=== PATIENT | male | born 1965 | race Caucasian/White ===

== ENCOUNTER 2018-01-03 15:57 | Inpatient (IN) | payer MEDICAID ==
[~2018-01-03] VITALS: Ht 172.7 cm; Wt 91.2 kg
--- NOTE | 2018-01-03 16:15 | NUR ---
DIARRHEA x 3 DAYS. OLIGURIA X 2 DAYS. NAD NOTED, VSS, RESP EVEN AND UNLABORED, PT WAS PUT ON A MONITOR, WAITING FOR MD MCNEILL.
[2018-01-03] MEDS ORDERED: ONDANSETRON HCL/PF 4 MG/2 ML VIAL ONE (16:44)
[2018-01-03 17:00] LABS: CALCIUM, SERUM 9.7 mg/dL (8.5-10.1); CREATININE 1.8 mg/dL (0.6-1.3); POTASSIUM 4.3 mmol/L (3.5-5.1)
[2018-01-03] MEDS ORDERED: IV NS 0.9% 1,000 ML BAG IV ONE (17:00)
[2018-01-03] MEDS ORDERED: ONDANSETRON HCL/PF 4 MG/2 ML VIAL IVP ONE (17:00)
[2018-01-03 17:04] LABS: INR 0.9 (0.85-1.15)
[2018-01-03 17:06] LABS: ALBUMIN 4.4 g/dL (3.4-5.0); BILIRUBIN,DIRECT 0.2 mg/dL (0.0-0.2); BILIRUBIN,TOTAL 1.2 mg/dL (0.2-1.0); TOTAL PROTEIN, SERUM 9.3 g/dL (6.4-8.2)
[2018-01-03 17:08] LABS: BASOPHILS # (AUTO) 0.1 /CMM (0.0-0.2); BASOPHILS % (AUTO) 0.8 % (0.0-2.0); EOSINOPHILS # (AUTO) 0.1 /CMM (0.0-0.7); EOSINOPHILS % (AUTO) 0.7 % (0.0-6.0); HEMATOCRIT 57 % (39-51); LYMPHOCYTES # (AUTO) 1.4 /CMM (0.8-4.8); LYMPHOCYTES % (AUTO) 10.8 % (20.0-44.0); MEAN CORPUSCULAR HEMOGLOBIN 32 PG (26.0-33.0); MEAN CORPUSCULAR HGB CONC 36 g/dl (31.0-36.0); MEAN CORPUSCULAR VOLUME 90 fL (80-96); MONOCYTES # (AUTO) 0.7 /CMM (0.1-1.30); MONOCYTES % (AUTO) 5.3 % (2.0-12.0); NEUTROPHILS # (AUTO) 10.4 /CMM (1.8-8.9); NEUTROPHILS % (AUTO) 82.4 % (43.0-81.0); PLATELET COUNT (AUTO) 437 /CMM (150-450); RDW COEFFICIENT OF VARIATION 12.3 (11.5-15.0); WHITE BLOOD COUNT (AUTO) 12.7 K/uL (4.3-11.0)
[2018-01-03 17:11] LABS: HEMOGLOBIN 20.1 g/dL (13.5-17.5)
--- NOTE | 2018-01-03 17:25 | NUR ---
DR MARIA AT BS.
--- NOTE | 2018-01-03 17:25 | NUR ---
PT IS STILL UNABLE TO PROVIDE URINE AND STOOL SAMPLE AT THIS MOMENT WILL TRY AFTER IVF HAS BEEN INFUSED.
[2018-01-03] MEDS ORDERED: IV NS 0.9% 1,000 ML IV PRN ×2 (17:46→20:30)
[2018-01-03] MEDS ORDERED: HYDROCODONE/APAP 5/325MG 1 EACH TABLET PO PRN ×2 (18:00→20:30)
[2018-01-03] MEDS ORDERED: MAGNESIUM HYDROXIDE 30 ML UDC PO PRN ×2 (18:00→20:30)
[2018-01-03] MEDS ORDERED: MAG HYDROX/AL HYDROX/SIMETH 30 ML UDC PO PRN ×2 (18:00→20:30)
[2018-01-03] MEDS ORDERED: ZOLPIDEM TARTRATE 5 MG TABLET PO PRN ×2 (18:00→20:30)
[2018-01-03] MEDS ORDERED: ACETAMINOPHEN 325 MG TABLET PO PRN ×2 (18:00→20:30)
[2018-01-03] MEDS ORDERED: Z GUARD REMEDY 2 OZ OINT TP PRN ×2 (18:00→20:30)
[2018-01-03] MEDS ORDERED: ONDANSETRON HCL/PF 4 MG/2 ML VIAL IVP PRN ×2 (18:00→20:30)
[2018-01-03 18:36] LABS: APPEARANCE,URINE Slightly Cloudy (CLEAR); BILIRUBIN,URINE SMALL (NEGATIVE); BLOOD, URINE Negative Ery/uL (NEGATIVE); COLOR,URINE Yellow (YELLOW); KETONES,URINE Negative (NEGATIVE); LEUKOCYTE ESTERASE ,URINE Negative (NEGATIVE); NITRITE, URINE Negative (NEGATIVE); PH,URINE 5.5 (5.0-8.0); PROTEIN,URINE Trace mg/dl (NEGATIVE); UGLUCOSE Negative (NEGATIVE); UROBILINOGEN,URINE 0.2 EU/dL (0.2)
[2018-01-03 19:06] LABS: RBC,URINE 0-2 /HPF (0-2)
[2018-01-03 19:07] LABS: BACTERIA,URINE Few /HPF (None Seen); FINE GRANULAR CASTS,URINE Few /LPF (None Seen); HYALINE CASTS, URINE Many /LPF (None Seen); SQUAMOUS EPITHELIAL CELL,UR Moderate /HPF (None Seen); WBC,URINE 0-2 /HPF (0-3)
--- NOTE | 2018-01-03 20:12 | NUR ---
REPORT GIVEN TO ORLY
[2018-01-03 20:28] LABS: LYMPHOCYTES % (MANUAL) 12 % (16-48); MONOCYTES % (MANUAL) 6 % (0-11.0); NEUTROPHILS % (MANUAL) 82 (42-76)
--- NOTE | 2018-01-03 20:30 | NUR ---
MS ADMITTING NOTES PT RECEIVED FROM [facility] AT 2020 VIA W/C A/O X 4, PT NOW RESTING COMFORTABLY IN BED. NO S/S OF DISTRESS NOTED. STABLE CONDITION, SIDE RAILS UP X2, CALL LIGHT WITHIN REACH. WILL CONTINUE PLAN OF CARE. HEAD TO TOE ASSESSMENT SKIN IS INTACT. TOLERATING ROOM AIR 98% NO DIARRHEA, NO C/O OF PAIN
--- NOTE | 2018-01-03 20:53 | NUR ---
MS RN NOTES PAGED DR.OLEG NICHOLSON. PHARMACY BENEFIT MANAGER HOSPITLAIST SPOKE TO HIM PT C/O OF HUNGRY, PER DR CELESTIN ORDER DIET REGULAR NOTED AND CARRIED OUT READ BACK AND VERIFIED
[2018-01-03 21:16] VITALS: BP 132/83
--- NOTE | 2018-01-04 06:20 | NUR ---
MS RN CLOSING NOTES PT COMFORTABLY ASLEEP AND EASILY AWAKEN, TOLERATING ROOM AIR 02 SAT 98% IN STABLE CONDITION. RESPIRATION EVEN AND UNLABORED. KEPT CLEAN AND DRY AND COMFORTABLE, ALL NURSING CARE RENDERED. NEEDS ATTENDED AND ANTICIPATED, FREQUENT VISUAL CHECK DONE FOR SAFETY EVERY 2 HOURS. ON LOW BED AT ALL TIMES TO ENSURE SAFETY. NO C/O PAIN. NO DIARRHEA, SAFE HAZARD FREE ENVIRONMENT PROVIDED. CALL LIGHT WITHIN EASY TO REACH. WILL ENDORSE NEXT SHIFT CONTINUITY OF CARE
--- NOTE | 2018-01-04 07:30 | NUR ---
MS RN OPENING NOTE RECEIVED PATIENT IN BED. BED IS LOCKED IN LOWEST POSITION, SIDE RAILS UP X2. PATIENT IS A/O X4, COOPERATIVE, AMBULATORY, BRP. DENIES PAIN/DISCOMFORT AT THIS TIME. CHEST IS RISING EQUALLY BILATERALLY. CALL LIGHT WITHIN REACH. EDUCATED TO CALL FOR ASSISTANCE USING THE CALL LIGHT. VERBALIZED UNDERSTANDING. WILL CONTINUE TO ASSESS/ MONITOR THROUGHOUT THE SHIFT.
[2018-01-04 08:00] VITALS: BP 133/99
--- NOTE | 2018-01-04 14:43 | NUR ---
MS DIETARY CLERK NOTE DISCHARGE ORDER RECEIVED. DISCHARGE EDUCATIONS PROVIDED TO PATIENT. IV CATHETER REMOVED. OCLUSIVE DRESSING APPLIED. FLU VACCINE OFFERED AND DECLINED. ALL BELONGINGS ARE ACCOUNTED FOR. PATIENT IS LEAVING THE HOSPITAL VIA PRIVATE CAR ACCOMPANIED BY THE MOTHER IN STABLE CONDITION.
--- NOTE | 2018-01-04 15:57 | NUR ---
patient left the hospital in stable condition
== END 2018-01-04 15:57 | disposition home or self-care (01) | DRG 249 ==
LOC: ER 15:59 → MEDSG2 20:39
PROVIDERS: ADMIT Internal Medicine; ATTEND Internal Medicine
DX: A08.4 Viral intestinal infection, unspecified (principal); N17.0 Acute kidney failure with tubular necrosis; E86.0 Dehydration
CPT/HCPCS: 36415; 80048-TC; 80076-TC; 81000-TC; 83690-TC; 85025-TC; 85730-TC; 87081-TC; 93307-TC; A4606; J2405; J7030; Z7610

== ENCOUNTER 2021-08-28 11:48 | Emergency (ER) | payer MEDICAID, OTHER ==
[~2021-08-28] VITALS: Ht 175.3 cm; Wt 88.5 kg
[2021-08-28 12:04] VITALS: BP 152/98
[2021-08-28] MEDS ORDERED: TDAP [DIPH/PERTUSSIS/TET] 0.5 ML VIAL IM ONE ×2 (12:12→12:30)
--- NOTE | 2021-08-28 12:39 | NUR ---
PT PROVIDED W/ WOUND CARE, SKIN ADHESIVE APPLIED. D/C IN STABLE CONDITION.
== END 2021-08-28 12:41 | disposition home or self-care (01) ==
LOC: ER 11:51
DX: S01.81XA Laceration without foreign body of other part of head, initial encounter (principal); E11.9 Type 2 diabetes mellitus without complications; W22.8XXA Striking against or struck by other objects, initial encounter; Y93.89 Activity, other specified; Y92.89 Other specified places as the place of occurrence of the external cause; Y99.8 Other external cause status
CPT/HCPCS: 12011; 90471; 90715; 99283; A6403

== ENCOUNTER 2021-09-25 16:57 | Emergency (ER) | payer OTHER ==
[~2021-09-25] VITALS: Ht 175.3 cm; Wt 88.5 kg
--- NOTE | 2021-09-25 17:29 | NUR ---
TO ER BED 4, BISELF C/O DIFFICULTY URINATING SINCE THIS MORNING, HX OF PASSING KIDNEY STONES BEFORE, "HAVEN'T PEED SINCE LAST NIGHT BECAUSE IT'S BLOCKED", AAOX3, BREATHING EVEN AND NON LABORED
[2021-09-25] MEDS ORDERED: TAMSULOSIN 0.4 MG CAP.SR.24H ONE (17:59)
[2021-09-25] MEDS ORDERED: KETOROLAC TROMETHAMINE 15 MG/ML VIAL ONE (17:59)
[2021-09-25] MEDS ORDERED: TAMSULOSIN 0.4 MG CAP.SR.24H PO ONE (18:00)
[2021-09-25] MEDS ORDERED: KETOROLAC TROMETHAMINE INJ 30 MG/ML VIAL IV ONE (18:00)
[2021-09-25] MEDS ORDERED: IV NS 0.9% 1,000 ML BAG IV ONE (18:00)
--- NOTE | 2021-09-25 18:09 | NUR ---
UNABLE TO URINATE YET
[2021-09-25 18:40] LABS: CALCIUM, SERUM 8.8 mg/dL (8.5-10.1); POTASSIUM 3.9 mmol/L (3.5-5.1)
--- NOTE | 2021-09-25 18:43 | NUR ---
PATIENT WILL KEEP TRYING TO URINATE, HAVEN'T URINATED SINCE LAST NIGHT
--- NOTE | 2021-09-25 19:29 | NUR ---
URINE COLLECTED AND SENT TO LAB
[2021-09-25] MEDS ORDERED: LIDOCAINE 2% JEL UROJET 10 ML MM ONE (19:34)
--- NOTE | 2021-09-25 19:39 | NUR ---
PT RESTING COMFORTABLY IN BED BREATHING EVEN AND UNLABORED ALL VITALS STABLE.
[2021-09-25 19:48] LABS: BILIRUBIN,URINE NEGATIVE (NEGATIVE); COLOR,URINE YELLOW (YELLOW); LEUKOCYTE ESTERASE ,URINE NEGATIVE (NEGATIVE); NITRITE, URINE NEGATIVE (NEGATIVE); PH,URINE 5.5 (5.0-8.0); PROTEIN,URINE NEGATIVE (NEGATIVE); UGLUCOSE NEGATIVE (NEGATIVE); UROBILINOGEN,URINE 0.2 EU/dL (0.2)
[2021-09-25 19:49] LABS: BASOPHILS % (AUTO) 0.5 % (0.0-2.0); HEMATOCRIT 43 % (39-51); HEMOGLOBIN 15.1 g/dL (13.5-17.5); LYMPHOCYTES # (AUTO) 2.2 K/uL (0.8-4.8); LYMPHOCYTES % (AUTO) 30.4 % (20.0-44.0); MEAN CORPUSCULAR HGB CONC 35 g/dl (31.0-36.0); MEAN CORPUSCULAR VOLUME 93 fL (80-96); MONOCYTES # (AUTO) 0.4 K/uL (0.1-1.30); MONOCYTES % (AUTO) 5.3 % (2.0-12.0); NEUTROPHILS # (AUTO) 4.3 K/uL (1.8-8.9); NEUTROPHILS % (AUTO) 58.8 % (43.0-81.0); PLATELET COUNT (AUTO) 277 K/uL (150-450); RED BLOOD CELL COUNT(AUTO) 4.68 MIL/uL (4.5-6.0); WHITE BLOOD COUNT (AUTO) 7.3 K/uL (4.3-11.0)
[2021-09-25 19:58] LABS: BACTERIA,URINE 1+ /HPF (None Seen); RBC,URINE 51-80 /HPF (0-2); WBC,URINE 0-2 /HPF (0-3)
[2021-09-25 19:59] LABS: MUCUS,URINE Moderate /LPF (None Seen); SQUAMOUS EPITHELIAL CELL,UR 0-2 /HPF (None Seen); URIC ACID CRYSTALS,URINE Moderate /HPF (None Seen)
[2021-09-25] MEDS ORDERED: TAMS-12 PO (20:39)
--- NOTE | 2021-09-25 20:52 | NUR ---
Patient discharged to home in stable condition. Written and verbal after care instructions given. Patient verbalizes understanding of instruction.
[2021-09-25 20:53] VITALS: BP 133/78
== END 2021-09-25 20:54 | disposition home or self-care (01) ==
LOC: ER 17:01
DX: R33.9 Retention of urine, unspecified (principal); N20.0 Calculus of kidney; E11.9 Type 2 diabetes mellitus without complications
CPT/HCPCS: 36415; 51702; 76770; 80048; 81001; 85025; 96361; 96374; 99284; J1885; J7030; J3490

== ENCOUNTER 2021-10-10 13:26 | Emergency (ER) | payer OTHER ==
[~2021-10-10] VITALS: Ht 172.7 cm; Wt 86.8 kg
[~2021-10-10 13:26] MED LIST: TAMS-12 PO
[2021-10-10 13:36] VITALS: BP 140/99
--- NOTE | 2021-10-10 13:40 | NUR ---
PT CAME TO ER C/O ONGOING PAIN IN PENIS X 2 WEEKS S/P TREJO CATHETER INSERTION ON 09/25/21. PT REPORTS THAT CATHETER WAS INSERTED D/T KIDNEY STONE CLOGGING THE URETHRA. PAIN 07/04. DENIES N/V, FEVER. A&OX4, AMBULATORY, BREATHING EVEN AND UNLABORED. ALDAIR COLORED URINE.
--- NOTE | 2021-10-10 13:56 | NUR ---
TRJEO CATHETER REMOVED. PT TOLERATED WELL. SLILGHT BLEEDING NOTED UPON PULLING.
--- NOTE | 2021-10-10 14:20 | NUR ---
Patient discharged to home in stable condition. Written and verbal after care instructions given. Patient verbalizes understanding of instruction.
== END 2021-10-10 14:24 | disposition home or self-care (01) ==
LOC: ER 13:28
DX: Z46.6 Encounter for fitting and adjustment of urinary device (principal); E78.5 Hyperlipidemia, unspecified; E11.9 Type 2 diabetes mellitus without complications